=== PATIENT | female | born 1965 | race Caucasian/White ===

== ENCOUNTER 2018-07-15 20:23 | Outpatient (REF) | payer OTHER, SELFPAY | END 2018-07-15 20:43 | LOC: LBN 20:23 | PROVIDERS: Referring Provider Family Medicine; Visit Provider Family Medicine | DX: R10.9 Unspecified abdominal pain (principal); R30.0 Dysuria | CPT/HCPCS: 87086 ==

== ENCOUNTER 2022-09-11 03:23 | Outpatient (CLI) | payer SELFPAY ==
[2022-09-11 12:41] LABS: ALT 75 U/L (14-59); AST 46 U/L (15-37); Albumin 3.6 g/dL (3.4-5.0); Alkaline Phosphatase 84 U/L (46-116); Anion Gap 6.7 mmol/L (3-11); BUN 11 mg/dL (7-18); Bilirubin, Total 0.2 mg/dL (0.2-1.0); CO2 30.3 mmol/L (21.0-32.0); CREATININE 0.9 mg/dL (0.55-1.02); Calcium 8.6 mg/dL (8.5-10.1); Calculated LDL 143 mg/dL (<100); Chloride 101 mmol/L (98-107); Cholesterol 215 mg/dL (<200); Estimated GFR 75.03 (mL/min/1.73m2); Glucose 111 mg/dL (74-106); HDL Cholesterol 53 mg/dL (40-60); Potassium 3.5 mmol/L (3.5-5.1); Sodium 138 mmol/L (136-145); TSH 2.25 uIU/mL (0.36-3.74); Total Protein 7.6 g/dL (6.4-8.2); Triglyceride 97 mg/dL (<150)
[2022-09-11 12:55] LABS: Hemoglobin A1C 5.9 % (<5.7)
== END 2022-09-11 03:24 | disposition home or self-care (01) ==
LOC: LOS 03:24
PROVIDERS: PCP Nurse Practitioner Family; Visit Provider Nurse Practitioner Family
DX: I10 Essential (primary) hypertension (principal); Z13.220 Encounter for screening for lipoid disorders; Z13.1 Encounter for screening for diabetes mellitus; Z13.29 Encounter for screening for other suspected endocrine disorder
CPT/HCPCS: 36415; 80053; 80061; 83036; 84443

== ENCOUNTER 2023-12-15 12:26 | Outpatient (CLI) | payer SELFPAY ==
[2023-12-15 09:53] LABS: ALT 52 U/L (14-59); AST 38 U/L (15-37); Albumin 3.7 g/dL (3.4-5.0); Alkaline Phosphatase 85 U/L (46-116); Anion Gap 10.3 mmol/L (3-11); BUN 11 mg/dL (7-18); Bilirubin, Total 0.4 mg/dL (0.2-1.0); CO2 26.7 mmol/L (21.0-32.0); CREATININE 0.9 mg/dL (0.55-1.02); Calcium 8.9 mg/dL (8.5-10.1); Chloride 103 mmol/L (98-107); Estimated GFR 74.57 (mL/min/1.73m2); Glucose 115 mg/dL (74-106); Potassium 4.5 mmol/L (3.5-5.1); Sodium 140 mmol/L (136-145); Total Protein 7.9 g/dL (6.4-8.2)
== END 2023-12-15 12:27 | disposition home or self-care (01) ==
LOC: LBO 12:26
PROVIDERS: PCP Nurse Practitioner Family; Visit Provider Nurse Practitioner Family
DX: I10 Essential (primary) hypertension (principal)
CPT/HCPCS: 36415; 80053

== ENCOUNTER 2023-12-18 11:09 | Outpatient (REF) | payer SELFPAY ==
--- NOTE | 2023-12-18 11:21 | SKI_PTH ---
PATIENT: Jazz Becker LOC: [facility] U#:[id number] AGE/SX: 58/F ROOM: RE12/18/[address]: Ana Steele : 1965 BED: DIS: 12/18/2023 SPEC #: [id number] RECD: 12/18/23 13:22 STATUS: JAILENE REPriscila #: [id number] ADELA: 12/18/23 11:[address]: Ana Steele DEPT: Surgical Specimen RECD BY: Colleen Craven ENTERED: 12/18/23 13:23 SP TYPE: ENE ELKINS DR: Kevin Jimenez, [employer] DEL[employer] Tissues: 1 - SKIN BIOPSY(SHAVE/PUNCH) 2 - SKIN BIOPSY(SHAVE/PUNCH) Procedures: SKIN LEVEL 4 SPECIAL STAIN 1 Comments: [id number]
== END 2023-12-18 11:10 | disposition home or self-care (01) ==
LOC: LBN 11:09
PROVIDERS: PCP Nurse Practitioner Family; Referring Provider Surgery; Visit Provider Surgery
DX: L92.1 Necrobiosis lipoidica, not elsewhere classified (principal)
CPT/HCPCS: 88305; 88312

== ENCOUNTER 2023-12-18 18:24 | Outpatient (CLI) | payer SELFPAY ==
[2023-12-18 14:53] LABS: Abs Immature Grans 0.02 10^3/uL (0.0-0.06); Absolute Basophil Count 0.04 10^3/uL (0.0-0.2); Absolute Lymphocyte Count 0.82 10^3/uL (1.2-3.4); Absolute Monocyte Count 0.54 10^3/uL (0.1-0.8); Absolute Neutrophil Count 4.51 10^3/uL (1.2-6.7); Basophils % 0.7; Eosinophils % 1.7; HCT 42.4 % (36.0-46.0); HGB 13.9 g/dL (11.2-15.7); Immature Grans % 0.3; Lymphocytes % 13.6; MCH 28.6 pg (27.0-33.0); MCHC 32.8 % (32.0-36.0); MCV 87 fL (80-95); MPV 9.2 fL (8.0-11.0); Neutrophils % 74.7; Platelet Count 197 10^3/uL (130-400); RBC 4.86 10^6/uL (3.93-5.22); RDW 12.3 % (11.7-14.6); RDW-SD 39.2 fL; WBC 6.03 10^3/uL (4.4-10.8)
[2023-12-18 16:55] LABS: ALT 70 U/L (14-59); AST 79 U/L (15-37); Albumin 3.8 g/dL (3.4-5.0); Alkaline Phosphatase 90 U/L (46-116); Anion Gap 11.4 mmol/L (3-11); BUN 12 mg/dL (7-18); Bilirubin, Total 0.4 mg/dL (0.2-1.0); C-Reactive Protein 1.39 mg/dL (<or=0.5); CO2 25.6 mmol/L (21.0-32.0); CREATININE 0.8 mg/dL (0.55-1.02); Calcium 9.1 mg/dL (8.5-10.1); Chloride 101 mmol/L (98-107); Estimated GFR 85.89 (mL/min/1.73m2); Glucose 93 mg/dL (74-106); Potassium 4.2 mmol/L (3.5-5.1); Sodium 138 mmol/L (136-145); TSH (W/Ref FT4) 1.78 uIU/mL (0.36-3.74); Total Protein 7.9 g/dL (6.4-8.2)
[2023-12-22 14:37] LABS: ANA Interpretation Positive (Negative); ANA Titer Pattern 1:80 Speckled
== END 2023-12-18 18:25 | disposition home or self-care (01) ==
LOC: LBO 18:27
PROVIDERS: PCP Nurse Practitioner Family; Visit Provider Surgery
DX: I10 Essential (primary) hypertension (principal); I83.813 Varicose veins of bilateral lower extremities with pain; K21.9 Gastro-esophageal reflux disease without esophagitis; K57.91 Diverticulosis of intestine, part unspecified, without perforation or abscess with bleeding; Z87.891 Personal history of nicotine dependence
CPT/HCPCS: 36415; 80053; 84443; 85025; 86038; 86140

== ENCOUNTER 2024-01-12 05:20 | Outpatient (CLI) | payer SELFPAY ==
[2024-01-12 17:03] LABS: Abs Immature Grans 0.02 10^3/uL (0.0-0.06); Absolute Basophil Count 0.04 10^3/uL (0.0-0.2); Absolute Eosinophil Count 0.15 10^3/uL (0.0-0.7); Absolute Lymphocyte Count 2.15 10^3/uL (1.2-3.4); Absolute Monocyte Count 0.37 10^3/uL (0.1-0.8); Absolute Neutrophil Count 3.08 10^3/uL (1.2-6.7); Basophils % 0.7; Eosinophils % 2.6; HCT 44.3 % (36.0-46.0); HGB 14.4 g/dL (11.2-15.7); Immature Grans % 0.3; MCH 28.7 pg (27.0-33.0); MCHC 32.5 % (32.0-36.0); MCV 88 fL (80-95); MPV 9.5 fL (8.0-11.0); Monocytes % 6.4; Platelet Count 265 10^3/uL (130-400); RBC 5.01 10^6/uL (3.93-5.22); RDW 12.1 % (11.7-14.6); RDW-SD 38.9 fL; WBC 5.81 10^3/uL (4.4-10.8)
[2024-01-12 17:13] LABS: INR 1.1 (0.9-1.1); Prothrombin Time 10.7 sec (9.1-11.1)
[2024-01-12 17:22] LABS: C-Reactive Protein 0.72 mg/dL (<or=0.5); GGT 127 U/L (5-55); LDH 173 U/L (81-234)
[2024-01-12 17:59] LABS: Calculated LDL 129 mg/dL (<100); Cholesterol 196 mg/dL (<200); Ferritin 420 ng/mL (8-252); Folate 17.8 ng/mL (8.6-20.0); HDL Cholesterol 49 mg/dL (40-60); Triglyceride 91 mg/dL (<150); Vitamin B12 940 pg/mL (193-986)
[2024-01-13 17:39] LABS: Rheumatoid Factor <8.6 IU/mL (<12.0)
[2024-01-13 19:17] LABS: HBs Antibody, Qual Positive (See Note); HBs Antibody, Quant 64.5 mIU/mL (See Note); Hepatitis B Core Antibody Negative (Negative); Hepatitis B surface Ag Negative (Negative); Hepatitis C Ab w Rflx HCV PCR Negative (Negative)
[2024-01-13 20:40] LABS: HIV-1/2 Ag & Ab Screen Negative (Negative)
[2024-01-14 09:38] LABS: Lyme Ab w Rflx to Lyme Confirm Negative (Negative)
[2024-01-14 09:59] LABS: Alpha 1 Antitrypsin,Serum 155 mg/dL (90-200)
[2024-01-14 12:19] LABS: TB Interpretation Negative (Negative); TB1 Ag minus Nil 0.01 IU/ml; TB2 Ag minus Nil 0.01 IU/mL
[2024-01-15 12:21] LABS: Ceruloplasmin 36.7 mg/dL
[2024-01-15 13:18] LABS: ANA Interpretation Positive (Negative); ANA Titer Pattern 1:160 Speckled
[2024-01-15 13:57] LABS: Baker's Yeast, IgE <0.10 kU/L (<0.70); Banana, IgE 0.11 kU/L (<0.70); Barley, IgE <0.10 kU/L (<0.70); Beef IgE <0.10 kU/L (<0.70); Black/White Pepper IgE <0.10 kU/L (<0.70); Broccoli IgE <0.10 kU/L (<0.70); Cacao/Cocoa, IgE <0.10 kU/L (<0.70); Cinnamon, IgE <0.10 kU/L (<0.70); Corn-Food IgE <0.10 kU/L (<0.70); Milk, IgE 0.23 kU/L (<0.70); Onion, IgE <0.10 kU/L (<0.70); Soybean IgE <0.10 kU/L (<0.70); Strawberry, IgE <0.10 kU/L (<0.70); White Potato, IgE <0.10 kU/L (<0.70)
[2024-01-15 16:13] LABS: Smooth Muscle Ab Screen Positive (Negative)
[2024-01-15 16:48] LABS: Mitochondrial Ab, M2 1.4 U
[2024-01-16 14:31] LABS: Anaplasma phagocytophilum Negative (Negative); B. miyamotoi PCR Negative (Negative); Babesia divergens/MO-1 Negative (Negative); Babesia duncani Negative (Negative); Babesia microti Negative (Negative); Ehrlichia chaffeensis Negative (Negative); Ehrlichia ewingii/canis Negative (Negative); Ehrlichia muris eauclairensis Negative (Negative)
== END 2024-01-12 05:21 | disposition home or self-care (01) ==
LOC: LBO 05:21
PROVIDERS: Surgery; PCP Nurse Practitioner Family; Visit Provider Nurse Practitioner Family
DX: R79.89 Other specified abnormal findings of blood chemistry (principal); I10 Essential (primary) hypertension; K21.9 Gastro-esophageal reflux disease without esophagitis; K57.90 Diverticulosis of intestine, part unspecified, without perforation or abscess without bleeding; Z87.891 Personal history of nicotine dependence; L92.1 Necrobiosis lipoidica, not elsewhere classified; I83.813 Varicose veins of bilateral lower extremities with pain
CPT/HCPCS: 36415; 80061; 82390; 83516; 86003; 86256; 86704; 86706; 86803; 87340; 87389; 87798; 82103; 82607; 82728; 82746; 82977; 83615; 85025; 85610; 86038; 86140; 86255; 86431; 86480; 86618

== ENCOUNTER 2024-02-10 13:02 | Day surgery (SDC) | payer SELFPAY ==
[2024-02-10 13:29] VITALS: BP 119/74; PULSE 65; RESP 16; TEMP 36.7; O2SAT 100
[2024-02-10] MEDS: Lactated Ringers 1,000 ML 80 ML IV (13:32)
[2024-02-10] MEDS: Acetaminophen 500 MG TAB 1000 MG PO (13:45)
[2024-02-10] MEDS: Gabapentin 300 MG CAP 600 MG PO (13:45)
--- NOTE | 2024-02-10 13:50 | ANES.PREOP_ITS ---
General Info Date of Service Date Performed: 02/10/24 Height: 5 ft 5 in Weight: 88.7 kg Body Mass Index (BMI): 32.5 Surgical Procedure: Operation Date: 02/10/24 15:10 Proposed Procedure Side Surgeon p Debridement around left lower anterior leg Left Ana Steele DO Meds Allergies and Home Medications Allergies Allergy/AdvReac Type Severity Reaction Status Date / Time No Known Allergies Allergy Verified 02/10/24 13:10 Home Medication Medication Instructions Recorded lisinopril 10 1 tab PO DAILY #90 tab-caps 09/12/23 mg-hydrochlorothiazide 12.5 mg tablet lidocaine 5 % topical ointment 1 applic topical TID PRN pain #50 01/02/24 grams tacrolimus 0.03 % topical ointment 1 applic topical BID #60 grams 01/12/24 tetracycline 500 mg capsule 500 mg PO Q12H 30 days #60 caps 01/12/24 gabapentin 600 mg tablet 600 mg PO QHS #30 tabs 01/29/24 Current Visit Medications: Current Medications Generic Name Dose Route Start Last Admin Trade Name Freq PRN Reason Stop Dose Admin Acetaminophen 1,000 mg 02/10/24 06:00 02/10/24 13:45 Acetaminophen 500 Mg Tab PO 03/11/24 23:59 1,000 mg PREOP BUCK Administration Gabapentin 600 mg 02/10/24 06:00 02/10/24 13:45 Gabapentin 300 Mg Cap PO 03/11/24 23:59 600 mg PREOP BUCK Administration Ringer's Solution 1,000 mls @ 80 mls/hr 02/10/24 06:00 02/10/24 13:32 IV 03/11/24 23:59 80 mls/hr INFUSION BUCK Administration Cefazolin Sodium/Dextrose 2 gm in 50 mls @ 100 mls/hr 02/10/24 06:00 Ancef Duplex IVPB 03/11/24 05:59 PREOP BUCK IV Miscellaneous Supplies 1 each 02/10/24 06:00 Iv Access IV 03/11/24 23:59 DIRECTED BUCK Sodium Chloride 0 ml 02/10/24 06:00 Normal Saline Flush 10 Ml Syr IV 03/11/24 23:59 PRN PRN Sodium Chloride 0 ml 02/10/24 06:00 Normal Saline 10 Ml Vial IJ 03/11/24 23:59 DIRECTED PRN Sterile Water 0 ml 02/10/24 06:00 Water,Injection,Sterile 10 Ml Vial IJ 03/11/24 23:59 DIRECTED PRN PFSH Active Problems Active Problems: Problem Status Onset Code Chronic pruritus L29.9 Left ankle pain M25.572 Non-healing wound of lower extremity S81.809A 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 Bronchitis LGSIL Pap smear of vagina Helicobacter pylori antibody elevation Surgical History Surgical History History of section History of removal of cyst History of surgical procedure Ligation of fallopian tube SKIN TAG REMOVAL (11/17/13) [facility] [place] section EGD - IV Sedation Colonoscopy - MAC (04/14/18) CYST REMOVAL (11/17/13) [facility] [place]; INCLUSION CYSTS Tobacco Smoking/Tobacco Use Status: Former Tobacco Use Passive smoking exposure: No Second hand exposure: Yes Alcohol Alcohol Intake: current Alcohol intake frequency: holidays/special occasions only Alcohol type: hard liquor Substance Use Substance use: Rarely Substance use type: marijuana Vital Signs and Lab Results Vital Signs Most Recent Vital Signs in EMR: Most Recent Vital Signs Temp Pulse Resp BP Pulse Ox 36.7 C 65 16 119/74 100 02/10/24 13:29 02/10/24 13:29 02/10/24 13:29 02/10/24 13:29 02/10/24 13:29 Lab Results Blood Type / Crossmatch: No Data to Display Complete Blood Count: White Blood Count 5.81 10^3/uL (4.4-10.8) 01/12/24 16:30 Red Blood Count 5.01 10^6/uL (3.93-5.22) 01/12/24 16:30 Hemoglobin 14.4 g/dL (11.2-15.7) 01/12/24 16:30 Hematocrit 44.3 % (36.0-46.0) 01/12/24 16:30 Platelet Count 265 10^3/uL (130-400) 01/12/24 16:30 Complete Metabolic Panel: C-Reactive Protein 0.72 mg/dL (<or=0.5) H 01/12/24 16:30 Liver Function Panel: Gamma Glutamyl Transpeptidase 127 U/L (5-55) H 01/12/24 16:30 Coagulation Panel: INR International Normalized Ratio 1.1 (0.9-1.1) 01/12/24 16:3 0 Prothrombin Time 10.7 sec (9.1-11.1) 01/12/24 16:30 Cardiac Panel: No Data to Display Arterial Blood Gas: No Data to Display Venous Blood Gas: No Data to Display Pancreas Panel: No Data to Display Thyroid Panel: No Data to Display Infectious Disease: HIV (1&2) Ag and Ab, 4th Generation Negative (Negative) 16:30 Hepatitis B Surface Antigen Negative (Negative) 01/12/24 16:30 Hepatitis C Antibody Negative (Negative) 01/12/24 16:30 Blood Cultures: No Data to Display Toxicology Panel: No Data to Display Imaging and Studies Imaging and Studies Study information below may be from another EMR and interpreted by another provider. Please see original notes in EMR for more complete details. Stress Test Summary: 12/30/16 Impressions: Normal study after maximal exercise. Summary: 1. Myocardial perfusion imaging: No myocardial perfusion defects noted. 2. The calculated left ventricular ejection fraction after stress: 64%. LV global systolic function is normal. No left ventricular regional motion abnormality. Anesthesia Assessment and Plan Anesthesia History Personal History: No History of Anesthesia Complications Family History: No Family History of Anesthesia Complications Exercise Tolerance Exercise Tolerance: Metabolic Equivalents>4 Pertinent Negatives Pertinent Negatives: No Symptoms of GERD, No Major Cardiovascular Symptoms or Complaints, No Major Pulmonary Symptoms or Complaints and No History of CVA/TIA Cardiac & Pulmonary Exam Cardiac Exam: Normal S1/S2 Heart Sounds Pulmonary Exam: Clear Bilateral Breath Sounds Implantable Cardiac Device Does patient have a Pacemaker or an ICD?: No Airway Exam Known Difficult Airway: No Mallampati Class: 1 Mouth Opening: Normal (> 3cm) Thyromental Distance: Greater than 3 cm Neck Range of Motion: Full ROM Neck Circumference: Normal Teeth Condition: Removable Dentures/Plates Upper and Removable Dentures/Plates Lower ASA Classification ASA Score: ASA 2 Emergency Case?: No NPO Status NPO Status: NPO Clears >2 hours, Solids >8 hours Anesthesia Plan Resuscitation Status: Full Code Anesthesia Technique: General Anesthesia Airway Planned: Natural Airway Monitors Used: Standard Monitors
[2024-02-10 13:52] VITALS: BMI 32.5
[2024-02-10] MEDS: ceFAZolin 2 GM/50 ML BAG IVPB (14:56)
[2024-02-10] MEDS: Bupivacaine 0.25% Pres-Free 30 ML VIAL ×2 (15:10)
[2024-02-10 15:23] VITALS: BP 102/76; PULSE 64; RESP 16; TEMP 36.4; O2SAT 96
--- NOTE | 2024-02-10 15:25 | W.ANESPOSTOP ---
Postoperative Evaluation Date, Time and Location Date Performed: 02/10/24 Time Performed: 15:25 Patient Location: Day Surgery Unit Vital Signs Most Recent Imported Vital Signs: Most Recent Vital Signs Temp Pulse Resp BP Pulse Ox 36.4 C L 64 16 102/76 96 02/10/24 15:23 02/10/24 15:23 02/10/24 15:23 02/10/24 15:23 02/10/24 15:23 Temp Pulse Resp BP Pulse Ox Pain Score Most Recent Pain Score: Most Recent Pain Score Pain Level 2 02/10/24 13:29 Assessment Mental Status: Awake (Alert & Oriented to Patient Baseline) Airway and Respiratory Function: Patent airway with normal (patient baseline) respiratory exam Cardiovascular Function: Hemodynamically Stable Hydration Status: Adequately Hydrated Nausea & Vomiting: No Nausea or Vomiting Pain: Pain is tolerable per patient Peripheral Nerve Block: Patient did not receive a nerve block
--- NOTE | 2024-02-10 15:38 | W.PM.OP ---
Date of service: 02/10/24 Time of Service: 15:39 Operative Note Operative Note DATE OF PROCEDURE: 02/10/24 PRE-OP DIAGNOSIS: Lipomodermal necrobiosis POST-OP DIAGNOSIS: same PROCEDURE: Incision and debridement wounds left lower extremity SURGEON: Ana Steele ANESTHESIA TYPE: Local By Surgeon and General:No Airway Refer to Anesthesia Record ESTIMATED BLOOD LOSS: 8 PATHOLOGY: none sent COMPLICATIONS: None Patient was transported to: no change Patient's condition: stable Procedure Description: Patient is a 58-year-old female smoker who has [place] dermal necrobiosis. She has had this condition for 20 years. Is been proven by by biopsy. The ulcer of the left lower extremity lateral aspect is very painful and tender and we cannot complete debridement in the office. She is here today for anesthesia for debridement informed consent is obtained explaining risks and benefits of procedure include not limited to: Bleeding, infection, scarring, recurrence, complication of anesthesia, further infection and need for further debridement. The extremity was marked in preop. Patient is brought to the operative suite placed supine position. Anesthesia is administered per department of anesthesia. She did receive preop antibiotics. Timeout is performed. The extremity was prepped and draped in the usual sterile fashion using a Betadine scrub solution. 60 cc of quarter percent Marcaine plain is U-Artemio used for local anesthetization. Sharp debridement is then carried out using scissors and Metzenbaums. The lesion does go down to the fascia and tendons. The wound is irrigated. Sterile nonstick dressings are applied. Patient Toller procedure well without complication transferred to recovery room in stable condition
[2024-02-10] MEDS: Ketorolac 15 MG/ML VIAL IVP (15:48)
--- NOTE | 2024-02-10 15:48 | W.PM.DSUDISC ---
Date of service: 02/10/24 Time of Service: 15:48 Discharge Plan Disposition Patient Disposition: Home Condition: Good Discharge Details Reason For Visit: Debridement left lower extremity Attending Provider: Ana Steele Primary Care Provider: Kevin Jimenez Home Meds and New Rx's Prescriptions: New tramadol 50 mg tablet 50 mg PO Q6H PRNQty: 10 0RF Continued tetracycline 500 mg capsule 500 mg PO Q12H 30 Days Qty: 60 6RF tacrolimus 0.03 % ointment 1 applic topical BID Qty: 60 6RF lidocaine 5 % ointment 1 applic topical TID PRN (Reason: pain) Qty: 50 3RF gabapentin 600 mg tablet 600 mg PO QHS Qty: 30 12RF lisinopril-hydrochlorothiazide 10-12.5 mg tablet 1 tab PO DAILY Qty: 90 3RF Hold Instructions: Home Medication placed on hold at Doctor's office Discharge Instructions Additional Instructions: Wound Care Instruction Pain Control Use ice!? Ice keeps the swelling down and swelling is what causes pain.? Never apply ice directly to the skin.? Wrap it in a towel or cloth.? Apply ice 20 minutes on and 20 minutes off for pain control.? Use as needed. Take Tylenol 500 mg by mouth with food every 4 hours as needed for pain. Or ibuprofen 600 mg by mouth with food every 6 hours as needed for pain.?? Tramadol for breakthrough pain. ? Always wash your hands before touching your incision. ? Keep the incision clean, dry, and out of water, keep the incision out of water. ? Do not to pick at the scabs. Scabs help protect the wound. ? You can take a shower in 24 hours and wash the incision with soap and water. Pat dry/don?t scrub. It?s OK to wash around the incision. But don?t spray water directly on it. ? Pat stitches dry if they get wet. Don't rub. ? Check the incision site daily for pain, redness, drainage, swelling, or separation of the incision edges. ? Make sure any clothing that touches the incision is loose-fitting. This will prevent rubbing. If the incision is on the head, keep your child from wearing caps or other head coverings. These may rub against the incision. -resume dressing changes in am.as you normally were. -F/u Dr. Steele on . You will need to call in am for an appt. [phone]. We will discuss placing a wound vac. When to seek medical care: Call your healthcare provider right away if you have any of these: ? More pain, redness, swelling, bleeding, or foul-smelling discharge around the incision area ? Fever of 101?F (38.3?C) or higher, or as directed by your child's healthcare provider ? Shaking chills ? Vomiting or nausea that doesn?t go away ? Numbness, coldness, or tingling around the incision area, or changes in skin color ? Opening of the sutures or wound [facility]: [phone] Stand Alone Forms: Anesthesia Discharge InstMonica, Geovanna Jon (DSU) Activity:: rest today Remove Dressings/Wound Care:: 24 hours Shower/Bathe:: 24 hours Diet:: As Tolerated Discharge Orders Discharge Orders: Discharge Order (Routine); Ordered 02/10/24 Ordered By: Ana Steele DS: Diagnosis Discharge Diagnosis (1) Essential hypertension: Status: Acute (2) Varicose veins of bilateral lower extremities with pain: Status: Acute (3) Increased BMI (body mass index): Status: Acute (4) Gastroesophageal reflux disease: Status: Acute (5) Elevated LFTs: Status: Acute (6) Diverticulosis: Status: Acute (7) Non-healing wound of lower extremity: Status: Acute (8) Headache: Status: Acute (9) Necrobiosis lipoidica: Status: Acute Asessment and Plan: The patient is doing well post-op from there.? They are having no nausea or vomiting. They are tolerating liquids and a snack. The pt is not having any chest pain or SOB.? Their pain is adequately controlled. They have been able to urinate.? ?HEENT:? no eye pain/drainage/redness/swelling. Mild sore throat ?Cardio- NSR, no chest pain, BP stable- see VS record ?Pulm: no sob or productive cough. No hemoptysis ?Incision- dressing is c/d/i w/ no excessive bleeding or drainage ?I discussed with the patient the findings at the time of surgery and the patient?s progress. ?We reviewed expectations at home; what the patient could expect for recovery time, and in the post-operative period.? We discussed the importance of walking to avoid blood clots and pneumonia.? We discussed and reviewed the patient's post-operative wound care and dressing needs.?? We reviewed their step-negrete pain management plan, Rx called to the pharmacy of their choice.? We reviewed activity and limitations-see discharge instructions. We reviewed warning signs, and when to seek medical attention- see d/c instructions.?? Patient was given a postoperative follow-up appointment. Patient verbalized understanding of their postoperative instructions, how do to take care of themselves and their incision, and the pain management plan. Please see discharge instructions.? (10) History of tobacco use: Status: Acute
[2024-02-10 16:08] VITALS: BP 118/75; PULSE 52; RESP 16; TEMP 36.6; O2SAT 100
== END 2024-02-10 17:00 | disposition home or self-care (01) ==
PROVIDERS: PCP Nurse Practitioner Family; Visit Provider Surgery
PROC: (CPT 11043; principal; 2024-02-10 15:00)
DX: L92.1 Necrobiosis lipoidica, not elsewhere classified; I10 Essential (primary) hypertension; Z79.899 Other long term (current) drug therapy; K21.9 Gastro-esophageal reflux disease without esophagitis; I83.813 Varicose veins of bilateral lower extremities with pain
CPT/HCPCS: 11043; J0665; J0690; J1885; J2001; J2704

== ENCOUNTER 2024-09-13 02:27 | Outpatient (CLI) | payer SELFPAY ==
[2024-09-13 12:17] LABS: FREE T4 1.11 ng/dL (0.76-1.46); Ferritin 262 ng/mL (8-252); T4 11.6 ug/dL (4.7-13.3); TSH 1.96 uIU/mL (0.36-3.74)
[2024-09-13 14:08] LABS: ALT 35 U/L (14-59); AST 28 U/L (15-37); Albumin 3.9 g/dL (3.4-5.0); Alkaline Phosphatase 97 U/L (46-116); Bilirubin, Direct 0.1 mg/dL (0.0-0.2); Bilirubin, Total 0.42 mg/dL (0.2-1.0); Vitamin D 25 Total 16.2 ng/mL (30-100)
[2024-09-13 14:35] LABS: C-Reactive Protein 0.66 mg/dL (<or=0.5)
[2024-09-13 16:55] LABS: GGT 43 U/L
[2024-09-13 17:15] LABS: T3,Free 3.7 pg/mL (2.8-5.3)
[2024-09-13 17:32] LABS: T3, Total 140 ng/dL (97-169)
[2024-09-13 17:42] LABS: Hemoglobin A1C 5.4 % (<5.7)
[2024-09-13 18:23] LABS: Thyroglobulin Antibody <15 U/mL (<=60); Thyroperoxidase Antibody <28 U/mL (<=60)
== END 2024-09-13 02:28 | disposition home or self-care (01) ==
PROVIDERS: PCP Nurse Practitioner Family; Visit Provider Physician Assistant
DX: L92.1 Necrobiosis lipoidica, not elsewhere classified (principal); R73.03 Prediabetes; R70.0 Elevated erythrocyte sedimentation rate; R79.82 Elevated C-reactive protein (CRP); I10 Essential (primary) hypertension; R63.5 Abnormal weight gain; E55.9 Vitamin D deficiency, unspecified
CPT/HCPCS: 36415; 80076; 82306; 86376; 82728; 82977; 83036; 83525; 84436; 84439; 84443; 84480; 84481; 86140